=== PATIENT | male | born 1965 | race Caucasian/White ===

== ENCOUNTER 2016-09-14 04:55 | Emergency (ER) | payer OTHER ==
[~2016-09-14] VITALS: Ht 172.7 cm; Wt 76.9 kg
[2016-09-14] MEDS ORDERED: LITHIUM CARBON300 MG PO (05:11)
[2016-09-14] MEDS ORDERED: CLOZAPINE100 MG PO (05:11)
[2016-09-14] MEDS ORDERED: ATORVASTATIN CA10 MG PO (05:12)
[2016-09-14] MEDS ORDERED: AMLODIPINE BESYL5 MG PO (05:12)
[2016-09-14 05:48] LABS: ADD MIUA? NO; BILIRUBIN NEGATIVE; BLOOD NEGATIVE; COLOR YELLOW ((YELLOW)); GLUCOSE (STRIP) NEGATIVE; KETONES 20; LEUKOCYTES NEGATIVE; NITRITE NEGATIVE; PROTEIN (STRIP) NEGATIVE; SPECIFIC GRAVITY 1.019 (1.000-1.030); UCUL ADDED? NO; UROBILINOGEN 0.2 MG/DL (0.2-1.0)
[2016-09-14 05:49] LABS: CHLORIDE 101 mEq/L (99-109); HEMATOCRIT 46.6 % (38.0-50.0); MCH 29.7 PG (29.0-34.0); MCHC 34.5 G/DL (30.0-36.0); MEAN PLAT.VOLUME 10.1 uM^3 (9.0-12.4); PLATELET COUNT 305 K/uL (156-360); POTASSIUM 3.8 mEq/L (3.7-5.4); RBC DIS.WIDTH-CV 13.2 % (11.8-14.6); RBC DIS.WIDTH-SD 41.2 % (39-53); RED BLOOD COUNT 5.42 M/uL (4.00-5.50); SODIUM 137 mEq/L (136-147); WHITE BLOOD COUNT 12.4 K/uL (4.1-10.2)
[2016-09-14 05:51] LABS: GLUCOSE 121 mg/dL (70-99)
[2016-09-14 05:52] LABS: ANION GAP 12 MEQ/L (2-14)
[2016-09-14 05:54] LABS: SERUM ETHYL ALCOHOL < 10 mg/dL
[2016-09-14 05:55] LABS: GFR ESTIMATE (CALCULATED) > 59 mL/min/; UREA NITROGEN (BUN) 27 mg/dL (9-23)
[2016-09-14 05:58] LABS: AMPHETAMINE NEGATIVE (500 ng/mL); BARBITURATES NEGATIVE (200 ng/mL); BENZODIAZEPINES NEGATIVE (150 ng/mL); COCAINE NEGATIVE (150 ng/mL); INTERNAL CONTROLS VALID? YES; METHADONE NEGATIVE (200 ng/mL); METHAMPHETAMINE NEGATIVE (500 ng/mL); OPIATES (MORPHINE) NEGATIVE (100 ng/mL); OXYCODONE NEGATIVE (100 ng/mL); PHENCYCLIDINE NEGATIVE (25 ng/mL); PROPOXYPHENE NEGATIVE (300 ng/mL); THC CANNABINOIDS NEGATIVE (50 ng/mL); TRICYCLIC ANTIDEPRESSANTS NEGATIVE (300 ng/mL)
[2016-09-14] MEDS ORDERED: TRAZODONE HCL50 MG PO (06:04)
[2016-09-14 06:07] VITALS: BP 147/105
== END 2016-09-14 06:31 | disposition home or self-care (01) ==
LOC: EME 04:55
PROVIDERS: Emergency Medicine
DX: R45.1 Restlessness and agitation (principal); G47.00 Insomnia, unspecified; F31.9 Bipolar disorder, unspecified; Z91.14 Patient's other noncompliance with medication regimen; E78.5 Hyperlipidemia, unspecified; I10 Essential (primary) hypertension
CPT/HCPCS: 80048; 81003; 85027; 90837; 99281; 99285; G0480

== ENCOUNTER 2016-09-16 10:17 | Inpatient (IN) | payer OTHER ==
[~2016-09-16] VITALS: Ht 172.7 cm; Wt 74.7 kg
[~2016-09-16 10:17] MED LIST: AMLODIPINE BESYL5 MG PO; ATORVASTATIN CA10 MG PO; CLOZAPINE100 MG PO; LITHIUM CARBON300 MG PO; TRAZODONE HCL50 MG PO
[2016-09-16 11:44] LABS: AMPHETAMINE NEGATIVE (500 ng/mL); BARBITURATES NEGATIVE (200 ng/mL); BENZODIAZEPINES NEGATIVE (150 ng/mL); COCAINE NEGATIVE (150 ng/mL); INTERNAL CONTROLS VALID? YES; METHADONE NEGATIVE (200 ng/mL); METHAMPHETAMINE NEGATIVE (500 ng/mL); OPIATES (MORPHINE) NEGATIVE (100 ng/mL); OXYCODONE NEGATIVE (100 ng/mL); PHENCYCLIDINE NEGATIVE (25 ng/mL); PROPOXYPHENE NEGATIVE (300 ng/mL); THC CANNABINOIDS NEGATIVE (50 ng/mL); TRICYCLIC ANTIDEPRESSANTS NEGATIVE (300 ng/mL)
[2016-09-16 12:02] LABS: HEMATOCRIT 44.7 % (38.0-50.0); MCH 29.6 PG (29.0-34.0); MCHC 34.5 G/DL (30.0-36.0); MCV 85.8 FL (86-99); MEAN PLAT.VOLUME 10.3 uM^3 (9.0-12.4); PLATELET COUNT 298 K/uL (156-360); RBC DIS.WIDTH-SD 40.6 % (39-53); RED BLOOD COUNT 5.21 M/uL (4.00-5.50); WHITE BLOOD COUNT 10.1 K/uL (4.1-10.2)
[2016-09-16 12:12] LABS: CHLORIDE 103 mEq/L (99-109); POTASSIUM 3.9 mEq/L (3.7-5.4); SODIUM 140 mEq/L (136-147)
[2016-09-16 12:14] LABS: GLUCOSE 116 mg/dL (70-99)
[2016-09-16 12:15] LABS: ANION GAP 12 MEQ/L (2-14)
[2016-09-16 12:17] LABS: SERUM ETHYL ALCOHOL < 10 mg/dL
[2016-09-16 12:18] LABS: GFR ESTIMATE (CALCULATED) > 59 mL/min/
[2016-09-16 12:20] LABS: UREA NITROGEN (BUN) 20 mg/dL (9-23)
[2016-09-16 12:21] LABS: SALICYLATE < 5.0 MG/DL (15-30)
[2016-09-16 16:49] VITALS: BP 124/97
[2016-09-17 07:52] VITALS: BP 132/85
[2016-09-17 15:22] VITALS: BP 125/87
[2016-09-18 10:58] VITALS: BP 100/67
[2016-09-18 15:49] VITALS: BP 134/66
[2016-09-19 08:00] VITALS: BP 124/60
[2016-09-19 16:02] VITALS: BP 128/79
[2016-09-20 07:37] VITALS: BP 115/77
[2016-09-20 15:21] VITALS: BP 116/80
[2016-09-21 07:47] VITALS: BP 121/84
[2016-09-21 10:34] LABS: EOSINOPHIL (%) 1.9 % (0-5); EOSINOPHIL COUNT 0.1 K/uL (0-0.3); HEMATOCRIT 44.1 % (38.0-50.0); IMMATURE GRANULOCYTE (%) 0.1 % (0.0-0.7); INSTRUMENT ABS NEUTROPHIL CT 5.7 K/uL; MCH 29.5 PG (29.0-34.0); MCV 86.8 FL (86-99); MEAN PLAT.VOLUME 9.8 uM^3 (9.0-12.4); MONOCYTE (%) 5.8 % (3-12); MONOCYTE COUNT 0.4 K/uL (0-0.8); NEUTROPHIL (%) 78.7 % (45-76); NEUTROPHIL COUNT 5.7 K/uL (1.8-6.4); PLATELET COUNT 311 K/uL (156-360); RBC DIS.WIDTH-CV 13.1 % (11.8-14.6); RBC DIS.WIDTH-SD 41.4 % (39-53); RED BLOOD COUNT 5.08 M/uL (4.00-5.50); WHITE BLOOD COUNT 7.2 K/uL (4.1-10.2)
[2016-09-21 15:48] VITALS: BP 124/72
[2016-09-21 21:25] VITALS: BP 131/69
[2016-09-22 07:38] VITALS: BP 122/83
[2016-09-22 15:00] VITALS: BP 127/85
[2016-09-22 18:41] VITALS: BP 161/86
[2016-09-23 07:25] VITALS: BP 131/70
[2016-09-23 15:31] VITALS: BP 126/80
[2016-09-24 07:35] VITALS: BP 117/87
[2016-09-24 15:43] VITALS: BP 126/74
[2016-09-25 07:29] VITALS: BP 118/90
[2016-09-25 15:36] VITALS: BP 118/83
[2016-09-26 07:40] VITALS: BP 113/63
[2016-09-26 15:16] VITALS: BP 124/89
[2016-09-27 07:31] VITALS: BP 137/79
[2016-09-27 09:20] LABS: EOSINOPHIL (%) 1.2 % (0-5); EOSINOPHIL COUNT 0.1 K/uL (0-0.3); HEMATOCRIT 42.6 % (38.0-50.0); IMMATURE GRANULOCYTE (%) 0.3 % (0.0-0.7); MCH 29.9 PG (29.0-34.0); MCHC 34.3 G/DL (30.0-36.0); MCV 87.1 FL (86-99); MONOCYTE COUNT 0.6 K/uL (0-0.8); NEUTROPHIL (%) 82.4 % (45-76); PLATELET COUNT 312 K/uL (156-360); RBC DIS.WIDTH-CV 13.3 % (11.8-14.6); RBC DIS.WIDTH-SD 42.4 % (39-53); RED BLOOD COUNT 4.89 M/uL (4.00-5.50); WHITE BLOOD COUNT 9.7 K/uL (4.1-10.2)
[2016-09-27 15:38] VITALS: BP 139/86
[2016-09-28 07:30] VITALS: BP 141/71
[2016-09-28 15:08] VITALS: BP 128/81
[2016-09-29 07:28] VITALS: BP 143/76
[2016-09-29 16:18] VITALS: BP 120/85
[2016-09-30 07:47] VITALS: BP 127/74
[2016-09-30 15:29] VITALS: BP 120/79
[2016-10-01 08:00] VITALS: BP 138/89
[2016-10-01 15:18] VITALS: BP 120/82
[2016-10-02 07:43] VITALS: BP 132/97
[2016-10-02 15:30] VITALS: BP 145/85
[2016-10-03 09:22] VITALS: BP 105/68
[2016-10-03 15:37] VITALS: BP 143/89
[2016-10-04 09:37] VITALS: BP 124/82
[2016-10-04 15:21] LABS: EOSINOPHIL COUNT 0.2 K/uL (0-0.3); HEMATOCRIT 43.8 % (38.0-50.0); IMMATURE GRANULOCYTE (%) 0.5 % (0.0-0.7); IMMATURE GRANULOCYTE COUNT 0.1 K/uL; INSTRUMENT ABS NEUTROPHIL CT 14.9 K/uL; LYMPHOCYTE COUNT 1.1 K/uL (1.0-2.8); MCH 29.3 PG (29.0-34.0); MCHC 33.8 G/DL (30.0-36.0); MCV 86.7 FL (86-99); MEAN PLAT.VOLUME 9.6 uM^3 (9.0-12.4); MONOCYTE (%) 5.1 % (3-12); MONOCYTE COUNT 0.9 K/uL (0-0.8); NEUTROPHIL (%) 86.9 % (45-76); NEUTROPHIL COUNT 14.9 K/uL (1.8-6.4); PLATELET COUNT 363 K/uL (156-360); RBC DIS.WIDTH-CV 13.3 % (11.8-14.6); RBC DIS.WIDTH-SD 42.9 % (39-53); RED BLOOD COUNT 5.05 M/uL (4.00-5.50); WHITE BLOOD COUNT 17.2 K/uL (4.1-10.2)
[2016-10-04 15:38] VITALS: BP 125/78
[2016-10-05 07:51] VITALS: BP 125/85
[2016-10-05 15:29] VITALS: BP 123/82
[2016-10-06 07:45] VITALS: BP 123/82
[2016-10-07 08:02] VITALS: BP 114/78
[2016-10-07 15:28] VITALS: BP 151/106
[2016-10-08 07:56] VITALS: BP 128/70
[2016-10-08 16:31] VITALS: BP 116/82
[2016-10-09 07:44] VITALS: BP 111/83
[2016-10-09 16:00] VITALS: BP 130/84
[2016-10-10 15:22] VITALS: BP 123/74
[2016-10-11 07:48] VITALS: BP 119/69
[2016-10-11 09:24] LABS: EOSINOPHIL (%) 1.2 % (0-5); EOSINOPHIL COUNT 0.2 K/uL (0-0.3); HEMATOCRIT 46.4 % (38.0-50.0); IMMATURE GRANULOCYTE (%) 0.6 % (0.0-0.7); IMMATURE GRANULOCYTE COUNT 0.1 K/uL; INSTRUMENT ABS NEUTROPHIL CT 14.3 K/uL; LYMPHOCYTE COUNT 1.1 K/uL (1.0-2.8); MCH 29.2 PG (29.0-34.0); MCHC 33.2 G/DL (30.0-36.0); MEAN PLAT.VOLUME 10.3 uM^3 (9.0-12.4); MONOCYTE (%) 4.1 % (3-12); MONOCYTE COUNT 0.7 K/uL (0-0.8); NEUTROPHIL (%) 87.4 % (45-76); NEUTROPHIL COUNT 14.3 K/uL (1.8-6.4); PLATELET COUNT 344 K/uL (156-360); RBC DIS.WIDTH-CV 13.8 % (11.8-14.6); RBC DIS.WIDTH-SD 44.2 % (39-53); RED BLOOD COUNT 5.27 M/uL (4.00-5.50); WHITE BLOOD COUNT 16.4 K/uL (4.1-10.2)
[2016-10-11 15:22] VITALS: BP 121/82
[2016-10-12 07:34] VITALS: BP 110/71
[2016-10-12 15:37] VITALS: BP 120/68
[2016-10-13] MEDS ORDERED: LITHIUM CARBON300 MG PO ×2 (09:19)
[2016-10-13] MEDS ORDERED: CLOZAPINE100 MG PO (09:19)
[2016-10-13 11:40] VITALS: BP 113/73
== END 2016-10-13 16:34 | disposition home or self-care (01) | DRG 885 ==
LOC: EME 10:17 → EDOF 14:15 → 1WEST 14:15
PROVIDERS: Emergency Medicine; Psychiatry & Neurology Psychiatry
DX: F31.2 Bipolar disorder, current episode manic severe with psychotic features (principal); I10 Essential (primary) hypertension; E78.5 Hyperlipidemia, unspecified; R45.1 Restlessness and agitation; R44.1 Visual hallucinations; R44.0 Auditory hallucinations; Z59.0 Homelessness; Z91.14 Patient's other noncompliance with medication regimen
CPT/HCPCS: 80048; 80178; 81003; 85025; 85027; 90837; 97150 GO; 97165 GO; 97166 GO; 97530 GO; 99281; 99285; G0480